=== PATIENT | female | born 1980 | race Caucasian/White ===

== ENCOUNTER 2017-12-19 12:30 | Inpatient (IN) | payer OTHER ==
[~2017-12-19] VITALS: Ht 162.6 cm; Wt 84.8 kg
[2017-12-31] MEDS ORDERED: PRENATAL PLUS1 EAC1 PO (09:32)
[2017-12-31] MEDS ORDERED: FOLIC ACID0.4 MG PO (09:33)
== END 2018-01-03 11:56 | disposition home or self-care (01) | DRG 766 ==
LOC: O/R 12-31 08:36 → OB/GYN 12-31 08:45
PROVIDERS: Obstetrics & Gynecology
PROC: 4A1HXCZ Monitoring of Products of Conception, Cardiac Rate, External Approach (ICD-10-PCS; 2017-12-31)
PROC: 10D00Z1 Extraction of Products of Conception, Low, Open Approach (ICD-10-PCS; principal; 2017-12-31 08:45)
DX: O44.03 Complete placenta previa NOS or without hemorrhage, third trimester (principal); Z3A.38 38 weeks gestation of pregnancy; Z37.0 Single live birth

== ENCOUNTER 2018-04-03 11:16 | Outpatient (CLI) | payer OTHER ==
[~2018-04-03 11:16] MED LIST: FOLIC ACID0.4 MG PO; PRENATAL PLUS1 EAC1 PO
== END 2018-04-03 11:26 | disposition home or self-care (01) ==
LOC: SONOGRAMA 11:16
DX: N60.11 Diffuse cystic mastopathy of right breast (principal)